=== PATIENT | female | born 1960 | race Caucasian/White ===

== ENCOUNTER 2019-07-02 00:38 | Emergency (ER) | payer OTHER ==
[~2019-07-02] VITALS: Ht 152.4 cm; Wt 72.6 kg
[~2019-07-02 00:38] MED LIST: WARF10TA PO
[2019-07-02 00:56] VITALS: BP 179/91
--- NOTE | 2019-07-02 01:03 | NUR ---
PT AMBULATED TO BED 4
--- NOTE | 2019-07-02 01:40 | NUR ---
59 Y/O FEMALE BIB SELF C/O. L ANKLE PAIN FOR 5 DAYS, WORSENING YESTERDAY. LEFT ANKLE VARICOSITIES NOTED WITH LEFT OPEN WOUND COVERED IN MEDICATED POWDER. PAIN LEVEL IS STABBING, 6/10. SLIGHT EDEMA +1 NON PITTING EDEMA ON LEFT LEG. PEDAL PULSES +2 BILATERALLY. SKIN IS COOL TO TOUCH UPON PALPATION. NKA PHM:BLOOD CLOTS RX COUMADIN
[2019-07-02 02:23] VITALS: BP 124/82
== END 2019-07-02 02:22 | disposition home or self-care (01) ==
LOC: MED 00:38
DX: I83.812 Varicose veins of left lower extremity with pain (principal); Z79.01 Long term (current) use of anticoagulants
CPT/HCPCS: 73610; 99283; Q0092

== ENCOUNTER 2019-08-23 01:34 | Emergency (ER) | payer OTHER ==
[~2019-08-23] VITALS: Ht 160 cm; Wt 81.6 kg
[2019-08-23 01:48] VITALS: BP 172/96
--- NOTE | 2019-08-23 01:48 | NUR ---
PT AMBULATES TO 09 WITH STEADY GAIT.
--- NOTE | 2019-08-23 01:52 | NUR ---
59 YO F BIB SELF AND SON PRESENTS TO ED C/O 06/20 LEFT FOOT PAIN FROM STAGE 2 WOUND TO LEFT MEDIAL ANKLE X 3 DAYS. PT REPORTS WOUND STARTED X 2 MONTHS AGO. PT DENIES HX OF DM. PT DENIES FEVER/CHILLS. -- PT AWAKE, A/O X 4. CALM, COOPERATIVE. ANSWERS QUESTIONS IN CLEAR, COMPLETE SENTENCES. BEHAVIOR AGE APPROPRIATE. -- SKIN PINK, WARM, DRY. BREATHING EVEN, UNLABORED. -- NON-PTTING PEDAL EDEMA NOTED TO LEFT FOOT. PMH-- BLOOD CLOTS RX-- COUMADIN Addendum: 08/23/19 at 0206 by [facility] @ 2200 FOR PAIN; SEMI-EFFECTIVE.
[2019-08-23] MEDS ORDERED: NEOMYCIN/POLYMYXIN/BACITRACIN 0.9 GM/1 PKT TP ONE (02:45)
--- NOTE | 2019-08-23 02:55 | NUR ---
PT WOUND COVERED WITH NON ADHERENT DRESSING AND WRAPPED WITH MARIANA WRAP AFTER NEOSPORIN APPLIED. +CSM
--- NOTE | 2019-08-23 03:00 | NUR ---
EMT PERFORMING WOUND CARE. NEOSPORIN, DRY GAUZE, MARIANA BANDAGE APPLIED.
[2019-08-23 03:29] VITALS: BP 172/96
--- NOTE | 2019-08-23 03:30 | NUR ---
Patient discharged with v/s stable. Written and verbal after care instructions given and explained. Patient alert, oriented and verbalized understanding of instructions. Ambulatory with steady gait. All questions addressed prior to discharge. ID band removed. Patient advised to follow up with PMD/nuclear weapons specialist. Rx of Motrin and Neosporin given. Patient educated on indication of medication including possible reaction and side effects. Opportunity to ask questions provided and answered.
== END 2019-08-23 03:30 | disposition home or self-care (01) ==
LOC: MED 01:34
DX: S91.002A Unspecified open wound, left ankle, initial encounter (principal); I10 Essential (primary) hypertension; L97.329 Non-pressure chronic ulcer of left ankle with unspecified severity; Z79.01 Long term (current) use of anticoagulants; X58.XXXA Exposure to other specified factors, initial encounter; Y92.89 Other specified places as the place of occurrence of the external cause; Y93.89 Activity, other specified; Y99.8 Other external cause status
CPT/HCPCS: 99283

== ENCOUNTER 2019-08-31 12:18 | Emergency (ER) | payer OTHER ==
[~2019-08-31] VITALS: Ht 157.5 cm; Wt 79.4 kg
[2019-08-31 12:27] VITALS: BP 137/75
--- NOTE | 2019-08-31 12:30 | NUR ---
PATIENT AMBULATED TO BED 4.
--- NOTE | 2019-08-31 12:35 | NUR ---
59 Y/O F PRESENTS TO ER C/O RASH TO NECK. PER PT ON SATURDAY NIGHT [facility] HAD A JO-ANN AND [place]. AFTERWARDS "MY LIPS AND MOUTH FELT TINGLY AND RASH ON NECK" PT TOOK 2 BENADRYLS LAST NIGHT AND TRIED CREAM, BUT RED RASH IS STILL PRESENT ON NECK AREA. NKA. MED HX: BLOOD CLOTS. SAFETY MEASURES IN PLACE. ERMD AT BEDSIDE.
[2019-08-31] MEDS ORDERED: predniSONE 20 MG TAB PO ONE (12:40)
[2019-08-31 12:50] VITALS: BP 137/75
--- NOTE | 2019-08-31 12:50 | NUR ---
Patient discharged with v/s stable. Written and verbal after care instructions given and explained. Patient alert, oriented and verbalized understanding of instructions. Ambulatory with steady gait. All questions addressed prior to discharge. ID band removed. Patient advised to follow up with PMD. Rx of PREDNISONE AND BENADRYL given. Patient educated on indication of medication including possible reaction and side effects. Opportunity to ask questions provided and answered.
== END 2019-08-31 12:50 | disposition home or self-care (01) ==
LOC: MED 12:18
DX: T78.1XXA Other adverse food reactions, not elsewhere classified, initial encounter (principal); R21 Rash and other nonspecific skin eruption; I10 Essential (primary) hypertension; Z79.01 Long term (current) use of anticoagulants; X58.XXXA Exposure to other specified factors, initial encounter
CPT/HCPCS: 99283; J7512; Q0163

== ENCOUNTER 2021-04-14 12:53 | Emergency (ER) | payer OTHER ==
[~2021-04-14] VITALS: Ht 152.4 cm; Wt 73.0 kg
[~2021-04-14 12:53] MED LIST changes: -WARF10TA PO; +WARF10TA19 PO
[2021-04-14 12:54] VITALS: BP 137/97
[2021-04-14] MEDS ORDERED: PYR100 PO (13:29)
[2021-04-14] MEDS ORDERED: ACET-9800 PO (13:29)
[2021-04-14] MEDS ORDERED: CEPH-588 PO (13:29)
[2021-04-14] MEDS ORDERED: IBUPROFEN 600 MG TAB PO ONE (13:35)
[2021-04-14] MEDS ORDERED: cephALEXin 500 MG CAP PO ONE (13:35)
[2021-04-14 13:57] VITALS: BP 137/97
== END 2021-04-14 13:57 | disposition home or self-care (01) ==
LOC: MED 12:53
DX: N39.0 Urinary tract infection, site not specified (principal); I51.9 Heart disease, unspecified; Z79.899 Other long term (current) drug therapy
CPT/HCPCS: 81002; 99283

== ENCOUNTER 2023-09-18 08:47 | Emergency (ER) | payer OTHER ==
[~2023-09-18] VITALS: Ht 165.1 cm; Wt 76.2 kg
[~2023-09-18 08:47] MED LIST changes: +ACET-9800 PO; +CEPH-588 PO; +PYR100 PO
[2023-09-18 08:55] VITALS: BP 153/89; PULSE 71; RESP 20; TEMP 98.7; O2SAT 99
[2023-09-18 09:24] LABS: APPEARANCE,URINE CLEAR (CLEAR); BILIRUBIN,URINE NEGATIVE (NEGATIVE); BLOOD, URINE NEGATIVE (NEGATIVE); COLOR,URINE YELLOW (YELLOW); LEUKOCYTE ESTERASE ,URINE 3+ (NEGATIVE); NITRITE, URINE NEGATIVE (NEGATIVE); PROTEIN,URINE NEGATIVE (NEGATIVE); UGLUCOSE NEGATIVE (NEGATIVE); UROBILINOGEN,URINE 0.2 EU/dL (0.2 - 1)
[2023-09-18 09:30] VITALS: O2SAT 99
[2023-09-18 09:41] LABS: BACTERIA,URINE 2+ /HPF (None Seen); RBC,URINE 0-5 /HPF (0-5)
[2023-09-18 09:42] LABS: SQUAMOUS EPITHELIAL CELL,UR 50-80 /LPF (0-3 (FEW))
[2023-09-18] MEDS ORDERED: CIPR500T4 PO (09:57)
[2023-09-18] MEDS ORDERED: IBUP-2213 PO (09:57)
[2023-09-18 10:08] VITALS: O2SAT 99
== END 2023-09-18 10:10 | disposition home or self-care (01) ==
LOC: MED 08:47
DX: N39.0 Urinary tract infection, site not specified (principal); I10 Essential (primary) hypertension; Z98.890 Other specified postprocedural states; Z79.899 Other long term (current) drug therapy; Z79.2 Long term (current) use of antibiotics; Z79.01 Long term (current) use of anticoagulants
CPT/HCPCS: 81001; 87086; 99283

== ENCOUNTER 2024-09-01 09:34 | Emergency (ER) | payer OTHER ==
[~2024-09-01] VITALS: Ht 165.1 cm; Wt 59.0 kg
[~2024-09-01 09:34] MED LIST changes: +CIPR500T4 PO; +IBUP-2213 PO
[2024-09-01 09:36] VITALS: BP 199/76; PULSE 75; RESP 19; TEMP 98.2; O2SAT 96
[2024-09-01] MEDS: FLUORESCEIN OPTH STRIP 1 MG OP ONE (10:50)
[2024-09-01] MEDS: TETRACAINE HCL/PF 0.5% OPTH 4 ML BTL OP ONE (10:51)
[2024-09-01 11:14] LABS: BASOPHILS % (AUTO) 0.4 % (0.0-2.0); EOSINOPHILS # (AUTO) 0.1 K/uL (0-0.4); EOSINOPHILS % (AUTO) 2.3 % (0.0-4.0); HEMATOCRIT 41.1 % (36-48); HEMOGLOBIN 13.7 g/dL (12.0-16.0); LYMPHOCYTES # (AUTO) 1.4 K/uL (2.5-16.5); LYMPHOCYTES % (AUTO) 29.6 % (20.5-51.1); MEAN CORPUSCULAR HEMOGLOBIN 31 pg (27-31); MEAN CORPUSCULAR HGB CONC 33 g/dL (33-37); MEAN CORPUSCULAR VOLUME 92.7 fL (80-94); MONOCYTES # (AUTO) 0.5 K/uL (0.8-1.0); MONOCYTES % (AUTO) 10.5 % (1.7-9.3); NEUTROPHILS # (AUTO) 2.6 K/uL (1.8-7.7); NEUTROPHILS % (AUTO) 57.2 % (42.2-75.2); PLATELET COUNT (AUTO) 189 K/uL (140-450); RED BLOOD CELL COUNT(AUTO) 4.44 MIL/uL (4.20-5.40); RED CELL DISTRIBUTION WIDTH 14.1 % (11.6-13.7); WHITE BLOOD COUNT (AUTO) 4.6 K/uL (4.8-10.8)
[2024-09-01 11:33] LABS: INR 1.05 (0.8-1.2)
[2024-09-01 12:06] VITALS: BP 167/91; PULSE 60; RESP 18; O2SAT 95
== END 2024-09-01 12:06 | disposition home or self-care (01) ==
LOC: MED 09:34
DX: H11.32 Conjunctival hemorrhage, left eye (principal); I10 Essential (primary) hypertension; Z79.01 Long term (current) use of anticoagulants; Z79.899 Other long term (current) drug therapy
CPT/HCPCS: 36415; 85025; 85610; 99283